=== PATIENT | female | born 1995 | race Two or more races ===

== ENCOUNTER 2017-04-04 23:28 | Emergency (ER) | payer SELFPAY ==
[~2017-04-04] VITALS: Ht 165.1 cm; Wt 117.9 kg
[2017-04-04 23:36] VITALS: BP 145/100
== END 2017-04-05 00:39 | disposition left against medical advice (07) ==
LOC: ER 23:33
DX: H92.01 Otalgia, right ear (principal); Z53.21 Procedure and treatment not carried out due to patient leaving prior to being seen by health care provider